=== PATIENT | male | born 1955 | race African-American/Black ===

== ENCOUNTER 2024-11-19 09:53 | Emergency (ER) | payer MEDICARE ==
[2024-11-19 11:24] LABS: Hematocrit 32.7 % (38.8-50.0); Hemoglobin 11.1 g/dL (13.5-17.5); Mean Corpuscular HGB CONC 33.9 g/dL (32.0-36.0); Mean Corpuscular Hemoglobin 29.6 pg (27.0-33.0); Mean Corpuscular Volume 87.2 fL (81.2-95.1); Mean Platelet Volume 9.5 fL (7.4-10.4); Platelet Count 240 10x3/uL (150-450); RBC Distribution Width 14.3 % (11.5-14.5); Red Blood Cell (RBC) Count 3.75 10x6/uL (4.32-5.72); White Blood Cell (WBC) Count 23.26 10x3/uL (3.5-10.5)
[2024-11-19 11:35] LABS: PTT 26.5 sec (22.0-33.0); Prothrombin Time 11.1 sec (9.5-12.1)
[2024-11-19 11:41] LABS: ALT (SGPT) 36 U/L (Less than 45); AST (SGOT) 41 U/L (11-34); Albumin 2.8 g/dL (3.1-4.5); Alkaline Phosphatase 154 U/L (40-110); Anion Gap 17 mmol/L (10-20); BUN (Urea Nitrogen) 15 mg/dL (8.4-25.7); Bilirubin, Total 0.7 mg/dL (0.3-1.2); Calc. Creatinine Clearance 0 mL/min (70-130); Calcium 12.3 mg/dL (7.8-10.44); Carbon Dioxide 22 mmol/L (23-31); Chloride 101 mmol/L (98-107); Estimated GFR 94; Globulin 4.3 g/dL (2.4-3.5); Glucose 121 mg/dL (80-115); Potassium 4.2 mmol/L (3.5-5.1); Protein, Total 7.1 g/dL (5.8-8.1); Sodium 136 mmol/L (136-145)
[2024-11-19 12:02] LABS: Band 12 % (5-11); Lymphocytes 6 % (21-51); Metamyelocyte 2 % (0-0); Monocytes 5 % (0-10); Neutrophil 75 % (42-75)
[2024-11-19 12:03] LABS: MDiff Complete? YES; Platelet Adequacy Comment Appears Adequate; RBC Morphology Within Normal Limits
[2024-11-19 12:43] LABS: Bilirubin Neg (Negative); Blood, Urine Negative (Negative); Clarity Clear (Clear); Glucose, Urine (Dipstick) Normal (Negative); Ketone, Urine Negative (Negative); Leukocyte Negative (Negative); Nitrite Negative (Negative); Protein, Urine (Dipstick) 30 mg/dl (Neg-Trace); Specific Gravity, Urine 1.015 (1.005-1.030); Urobilinogen Normal mg/dL (Less than 2)
[2024-11-19 13:18] LABS: Bacteria/HPF None Seen HPF (None Seen); CAUTI Indications for Culture Pelvic or flank pain; Calcium Oxalate Crystals 1+ HPF (None Seen); RBC/HPF 0-3 HPF (0-3); Squamous Epithelial 0-3 HPF (0-3); WBC/HPF 0-3 HPF (0-3)
[2024-11-19 13:19] LABS: Urine Culture Reflex No No
[2024-11-19] MEDS ORDERED: Dexamethasone 10 MG/ML VIAL ONE (15:47)
== END 2024-11-19 17:20 | disposition home or self-care (01) ==
LOC: CSHERS 09:53
DX: R42 Dizziness and giddiness (principal); R22.0 Localized swelling, mass and lump, head; R29.700 NIHSS score 0; I10 Essential (primary) hypertension; E78.5 Hyperlipidemia, unspecified
CPT/HCPCS: 70450; 80053; 81001; 85025; 85610; 85730; 86850; 86900; 86901; 93005; J1100; 36415; 96361; 96374